=== PATIENT | female | born 1945 | race Caucasian/White ===

== ENCOUNTER → 2016-05-07 | Outpatient (CLI) | payer OTHER ==
--- NOTE | 2016-05-07 10:04 | MA ---
Screening Digital Mammogram With iCAD Analysis Clinical Indications: Routine screening. The patient has had benign left breast biopsies. Technique: Standard cephalocaudal and mediolateral oblique projections are obtained. This examination is processed by the iCAD computer aided detection system. Comparison: March 2015, March 2014, February 2014, February 2013, February 2012, January 2011, November 2009. Breast density: Type B; Scattered fibroglandular densities. Findings: CAD was reviewed. No masses, suspicious calcifications or other signs of malignancy are see n. There has been no significant change in the appearance of either breast. Impression: Negative mammogram. BI-RADS 1. Recommendation: Routine mammographic screening in one year as long as physical [facility]. Negative mammography should not preclude additional workup of a clinically suspicious finding. The patient's information is entered into a reminder system with a target due date for her next mammo gram.
== END ==
LOC: BMCIMAGING 08:16
DX: Z12.31 Encounter for screening mammogram for malignant neoplasm of breast (principal)
CPT/HCPCS: G0202

== ENCOUNTER → 2016-05-08 | Outpatient (CLI) | payer OTHER ==
--- NOTE | 2016-05-08 20:15 | DX ---
DEXA Bone Mineral Densitometry Clinical Indications: 70-year-old female with osteoporosis. Technique: Bone Mineral Densitometry (BMD) by Dual Energy X-Ray Absorptiometry (DEXA) was performed utilizing the SpectraSensors scanner. The lumbar spine was evaluated in the AP projection. The bilat eral hips and forearm were evaluated in the AP projection. Vertebral fracture assessment was also p erformed. Comparison: February 25, 2013. AP Lumbar Spine: The L1, L2, L3, and L4 vertebral bodies were evaluated. BMD: 0.757 gm/cm2. T-score: -3.5 SD. Z-score: -1.8 SD. -2.4% compared to the prior examination. AP Left Hip: Total BMD: 0.76 gm/cm2. T-score: -1.9 SD. Z-score: -0.5 SD. -2.3% compared to the prior examination. AP Right Hip: Total BMD: 0.835 gm/cm2. T-score: -1.4 SD. Z-score: -0.1 SD. 0.1% increase from the prior exam. AP Left Forearm, 05/01: BMD: 0.752 gm/cm2. T-score: -1.4 SD. Z-score: 0.2 SD. -4.2% compared to the prior examination. Vertebral Fracture Assessment: No significant fracture deformity. No prevertebral aortic calcificat ion, significant marginal bone spurring, facet arthrosis, or intrinsic vertebral body sclerosis that would effect the accuracy of the lumbar spine BMD measurement. Conclusion: Considering the lowest measured site, the lumbar spine, the patient is osteoporotic. Sm all decrease compared to the prior examination of 2.4% at this site and 4.2% in the forearm. The ten year FRAX risk for any major osteoporotic fracture, which excludes the risk for a wrist fract ure, is 17.8% and for a hip fracture is 3.1%. Any bone loss in this patient is probably related to aging or estrogen deficiency. Recommendations 1. Consider excluding secondary metabolic causes of bone loss (reported to be present in as many as 30% of patients with normal Z-scores). Laboratory evaluation might include hydroxy vitamin D3 level, TSH, PTH, calcium, 24-hour urine calcium, phosphorous, albumin, creatinine, alkaline phosphatase, se rum electrophoresis (SPEP or UPEP), antitissue transglutaminase antibody levels (celiac disease) and CBC. If secondary causes are excluded, then consider initiating treatment with a bisphosphonate (suc h as Fosamax, Actonel or Boniva). If the patient is unable to use an oral bisphosphonate, another ag ent such as IV bisphosphonates (Boniva or Reclast), teriparatide (Forteo), or a selective estrogen re ceptor modulator (Evista) might be considered. 2. Supplementing an insufficient diet to achieve total intakes of 1500 mg calcium and 800 Internatio nal Units of vitamin D daily should be considered. 3. Osteoporosis prevention and treatment begin by modifying risk factors. The patient should be enc ouraged to participate in a regular exercise program that includes weightbearing and muscle-strengthe preet regimens, as is clinically appropriate. 4. Recommend follow-up DEXA in one year to assess the efficacy of pharmacologic intervention and/or correction of appropriate secondary cause
== END ==
LOC: FIMAGING 08:33
PROVIDERS: ATTEND Family Medicine
DX: M81.0 Age-related osteoporosis without current pathological fracture (principal)

== ENCOUNTER → 2017-05-14 | Outpatient (CLI) | payer OTHER | LOC: BMCIMAGING 08:22 | PROVIDERS: ATTEND Family Medicine | DX: Z12.31 Encounter for screening mammogram for malignant neoplasm of breast (principal) ==

== ENCOUNTER 2017-10-28 13:55 | Emergency (ER) | payer OTHER ==
[2017-10-28] MEDS ORDERED: NS 1,000 ML IV ONE (14:18)
--- NOTE | 2017-10-28 14:22 | EDPHY ---
H & P Stated Complaint: word finding difficulty, dizzy Time Seen by Provider: 10/28/17 14:12 HPI/ROS: CHIEF COMPLAINT: Word-finding difficulties HISTORY OF PRESENT ILLNESS: Patient is a healthy 71-year-old female with a history of pre diabetes who states that around 930 this morning she began having trouble with word finding difficulties. She states that she was writing an e-mail and could not make a sentence makes sense. She then called her and had a hard time communicating. states that he noticed very slight slurred speech and then she stopped talking for about 10 sec and then her speech was back to normal. She states that her symptoms have been intermittent but resolved about 1 hr ago. She last had problems at around 1:30 a.m. Today. No fevers. No trauma. No recent illness. No focal weakness or numbness. No vision or hearing changes. No GI symptoms. No chest pain. She did have some dizziness associated but states that she has problems with chronic vertigo. No headache. REVIEW OF SYSTEMS: Constitutional: denies: chills, fever, recent illness, recent injury EENTM: denies: blurred vision, double vision, nose congestion Respiratory: denies: cough, shortness of breath Cardiac: denies: chest pain, irregular heart rate, lightheadedness, palpitations Gastrointestinal/Abdominal: denies: abdominal pain, diarrhea, nausea, vomiting, blood streaked stools Genitourinary: denies: dysuria, frequency, hematuria, pain Musculoskeletal: denies: joint pain, muscle pain Skin: denies: lesions, rash, jaundice, bruising Neurological: See HPI Hematologic/Lymphatic: denies: blood clots, easy bleeding, easy bruising Immunologic/allergic: denies: HIV/AIDS, transplant - Physical Exam General Appearance: WD/WN, mild distress Eyes, Ears, Nose, Throat Exam: PERRL/EOMI, normal ENT inspection, pharynx normal Neck: non-tender, full range of motion, supple, normal inspection. No: stiff neck, tender lateral Cardiovascular/Chest: normal peripheral pulses, regular rate, rhythm Respiratory: chest non-tender, lungs clear, normal breath sounds. No: crackles , rhonchi Gastrointestinal/Abdominal: normal bowel sounds, non tender, soft Back Exam: normal inspection Extremity: normal range of motion, non-tender, normal inspection Mental Status: alert, oriented x 3 NIH stroke score 0 CN's Exam: normal hearing, normal speech, PERRL, normal eye position, normal gag reflex, normal pupil position, normal speech. No: facial asymmetry, facial droop, facial paresthesias, gaze palsy, tongue deviation to R, tongue deviation to L Coordination/Gait: normal finger to nose, normal gait Motor/Sensory: normal. No: motor deficit, sensory deficit, pronator drift (R), pronator drift (L), weak motor strength RUE, weak motor strength LUE, weak motor strength RLE, weak motor strength LLE DTR: tricep (R): 2+, tricep (L): 2+, knee (R): 2+, knee (L): 2+ Skin Exam: warm/dry, normal color Lymphatic: no adenopathy Source: Patient, Family Exam Limitations: No limitations - Personal History Current Tetanus Diphtheria and Acellular Pertussis (TDAP): Unsure - Medical/Surgical History Hx Asthma: No Hx Chronic Respiratory Disease: No Hx Diabetes: Yes Hx Cardiac Disease: No Hx Renal Disease: No Hx Cirrhosis: No Hx Alcoholism: No Hx HIV/AIDS: No Hx Splenectomy or Spleen Trauma: No Other PMH: prediabetic, chronic back pain, high cholesterol, migraines - Family History Significant Family History: No pertinent family hx - Social History Smoking Status: Never smoked Alcohol Use: Sober Drug Use: None Constitutional: Initial Vital Signs Temperature (C) 36.9 C 10/28/17 14:05 Heart Rate 72 10/28/17 14:05 Respiratory Rate 16 10/28/17 14:05 Blood Pressure 139/76 H 10/28/17 14:05 O2 Sat (%) 96 10/28/17 14:05 O2 Delivery Mode Room Air Allergies/Adverse Reactions: Sulfa (Sulfonamide Antibiotics) Allergy (Verified 10/28/17 14:09) Home Medications: Medication Instructions Recorded SUMAtriptan 10/28/17 Medical Decision Making - Diagnostics EKG Interpretation: An EKG obtained and was read and documented in trace view. Please see trace view for full reading and report. Sinus rhythm, no acute ischemic changes Imaging Results: Imaging Impressions Brain MRI 10/28/17 14:19 Impression: 1. Mild age-related cerebral atrophy. 2. Single tiny nonspecific hyperintense T2/FLAIR signal abnormalities in the white matter of left posterior frontal lobe subcortical location superiorly. Differential diagnosis includes microvascular ischemic disease, post-infectious/ post-inflammatory sequela, atypical demyelinating disease, or migraine-related sequela. . If symptoms worsen, additional imaging may be necessary. Findings discussed with Luke Harmon M.D. at 15:33 hour, 10/28/2017. Head CT 10/28/17 14:19 Impression: 1. Mild age-related atrophy. 2. No hemorrhage, mass effect, or definite acute peripheral infarct. Subsequent CT angiogram procedure was also performed. Head CTA 10/28/17 14:32 Impression: 1. Normal CT angiogram of the neck. 2. Normal CT angiogram of the [place], as detailed above. Note: All calculations were performed using NASCET criteria. Findings discussed with Luke Harmon M.D. at 15:46 hour, 10/28/2017. Neck CTA 10/28/17 14:32 Impression: 1. Normal CT angiogram of the neck. 2. Normal CT angiogram of the [place], as detailed above. Note: All calculations were performed using NASCET criteria. Findings discussed with Luke Harmon M.D. at 15:46 hour, 10/28/2017. Imaging: Discussed imaging studies w/ emergency preparedness manager Radiologist ED Course/Re-evaluation: I spoke with Dr. Miguel of from Neurology. He agrees that this is not a stroke alert. We discussed workup. He does recommend CT angio. Will also obtain MRI and echo. If these are normal the patient may go home. I spoke with Dr. Igor Falcon at the time of ordering neck when he agree to read it. Patient's tests are all unremarkable. This is reassuring. I will start her on aspirin daily and have her follow up with Dr. Miguel. We also discussed following up with Cardiology for cardiac monitoring possibly calcium scores etc. Differential Diagnosis: Partial list of the Differential diagnosis considered include but were not limited to; TIA, CVA, anxiety, migraine and although unlikely based on the history and physical exam, I also considered infection, allergic reaction, seizure, trauma. I discussed these differential diagnoses and the plan with the patient as well as the usual and expected course. The patient understands that the diagnosis is provisional and that in medicine we are not always correct and that further workup is often warranted. Usual and customary warnings were given. All of the patient's questions were answered. The patient was instructed to return to the emergency department should the symptoms at all worsen or return, otherwise to followup with the physician as we discussed. - Data Points Laboratory Results: Laboratory Results 10/28/17 14:30 10/28/17 14:30 10/28/17 10/28/17 10/28/17 14:30 14:30 14:30 WBC 7.11 10^3/uL 10^3/uL (3.80-9.50) RBC 5.10 10^6/uL 10^6/uL (4.18-5.33) Hgb 14.1 g/dL g/dL (12.6-16.3) Hct 43.9 % % (38.0-47.0) MCV 86.1 fL fL (81.5-99.8) MCH 27.6 pg L pg (27.9-34.1) MCHC 32.1 g/dL L g/dL (32.4-36.7) RDW 14.0 % % (11.5-15.2) Plt Count 228 10^3/uL 10^3/uL (150-400) MPV 10.0 fL fL (8.7-11.7) Neut % (Auto) 61.4 % % (39.3-74.2) Lymph % (Auto) 27.8 % % (15.0-45.0) [place] % (Auto) 8.0 % % (4.5-13.0) Eos % (Auto) 1.5 % % (0.6-7.6) Baso % (Auto) 1.0 % % (0.3-1.7) Nucleat RBC Rel Count 0.0 % % (0.0-0.2) Absolute Neuts (auto) 4.36 10^3/uL 10^3/uL (1.70-6.50) Absolute Lymphs (auto) 1.98 10^3/uL 10^3/uL (1.00-3.00) Absolute Monos (auto) 0.57 10^3/uL 10^3/uL (0.30-0.80) Absolute Eos (auto) 0.11 10^3/uL 10^3/uL (0.03-0.40) Absolute Basos (auto) 0.07 10^3/uL 10^3/uL (0.02-0.10) Absolute Nucleated RBC 0.00 10^3/uL 10^3/uL (0-0.01) Immature Gran % 0.3 % % (0.0-1.1) Immature Gran # 0.02 10^3/uL 10^3/uL (0.00-0.10) PT 13.7 SEC SEC (12.0-15.0) INR 1.03 (0.83-1.16) APTT 25.7 SEC SEC (23.0-38.0) Sodium 137 mEq/L mEq/L (135-145) Potassium 5.2 mEq/L H mEq/L (3.3-5.0) Chloride 110 mEq/L mEq/L (97-110) Carbon Dioxide 20 mEq/l L mEq/l (22-31) Anion Gap 7 mEq/L L mEq/L (8-16) BUN 31 mg/dL H mg/dL (7-23) Creatinine 0.6 mg/dL mg/dL (0.6-1.0) Estimated GFR > 60 Glucose 85 mg/dL mg/dL (70-100) Calcium 10.3 mg/dL mg/dL (8.5-10.4) Specimen Hemolysis 115 Medications Given: Discontinued Medications Sodium Chloride (Ns) 1,000 mls @ 500 mls/hr IV EDNOW ONE PRN Reason: Protocol Stop: 10/28/17 16:17 Last Admin: 10/28/17 14:34 Dose: 1,000 mls Departure - Departure Disposition: [facility] Inpatient Acute Clinical Impression: Transient cerebral ischemia Qualifiers: Transient cerebral ischemia type: unspecified Qualified Code(s): G45.9 - Transient cerebral ischemic attack, unspecified Condition: Fair Instructions: Transient Ischemic Attack (ED) Additional Instructions: Began taking aspirin daily as discussed and follow-up with Neurology. Referrals: Nadya Garrison MD [Primary Care Provider] - As per Instructions Trent Connor MD [Medical Doctor] - 5-7 days, call for appt.
--- NOTE | 2017-10-28 14:28 | CPEKG ---
Heart Rate: 64 RR Interval: 938 P-R Interval: 140 QRSD Interval: 90 QT Interval: 420 QTC Interval: 434 P [place]: 65 QRS [place]: 39 T Wave [place]: 49 EKG Severity - NORMAL ECG - EKG Impression: SINUS RHYTHM Electronically Signed By: Luke Harmon 28-Oct-2017 14:55:46
[2017-10-28 14:36] LABS: PLATELET COUNT 228 10^3/uL (150-400)
[2017-10-28 14:44] LABS: INR 1.03 (0.83-1.16); PROTIME(PATIENT) 13.7 SEC (12.0-15.0)
[2017-10-28] MEDS ORDERED: IOPAMIDOL (ISOVUE 370) 100 ML BTL IV ONE (14:54)
[2017-10-28 16:08] VITALS: BP 135/72
--- NOTE | 2017-10-28 16:29 | ECHO ---
[email or web address] [address] Main: [phone] Fax: Transthoracic Echocardiogram Name: CARLOS MOCK MR#: [id number] Study Date: 10/28/2017 Study Time: 03:51 PM Date of : 1945 Age: 71 year(s) Height: 162.6 cm (64 in.) Weight: 58.97 kg (130 lb.) BSA: 1.63 m2 Gender: Female Examination: Echo Indication: Chest Pain Image Quality: Contrast: Requested by: Luke Harmon BP: 140 mmHg/72 mmHg Heart Rate: Rhythm: Indication: Chest Pain Procedure Staff Oil Plant Operator: Anne Marie Cabrales RDCS Reading Physician: Adeel Falcon MD Requesting Provider: Conclusions: Normal size left ventricle. Normal global systolic LV function. The ejection fraction is estimated to be 65-70 %. No regional wall motion abnormality. Mild mitral valve regurgitation is present. Mild to moderate aortic valve regurgitation. Trivial tricuspid valve regurgitation. Measurements: Chambers Valvular Assessment AV/MV Valvular Assessment TV/PV Normal Normal Normal Name Value Range Name Value Range Name Value Range Ao Stefani (MM): 3.6 cm (2.2 cm-3.7 AV Vmax: 1.05 m/s (1 m/s-1.7 cm) m/s) IVSd (2D): 0.7 cm (0.6 cm-1.1 AV maxP mmHg ( - ) cm) AV meanP mmHg ( - ) LVDd (2D): 5.0 cm (3.9 cm-5.3 AR (PHT): 511 ms ( - ) cm) MV E Vmax: 0.43 m/s ( - ) LVDs (2D): 3.3 cm (2.1 cm-4 MV A Vmax: 0.64 m/s ( - ) cm) MV E/A: 0.67 ( - ) LVPWd (2D): 0.6 cm ( - ) LVOTd 2.2 cm 2.2 cm mm LVEF (MOD4): 68 % (>=55 %) EF Range: 65-70 % Continued Measurements: Chambers Valvular Assessment AV/MV Name Value Name Value LADs: 3.5 cm MV E/E' Septal: 9.40 Patient: CARLOS MOCK Study Date: 10/28/2017 Page 1 of 2 03:51 PM LADs Lon.7 cm MV E/E' Lateral: 6.20 LA Area: 17.0 cm2 AR Vmax: 4.71 cm/s Additional Vessels Name Value Ao Ascendin.3 cm Findings: Left Ventricle: Normal size left ventricle. No LV hypertrophy. Normal global systolic LV function. The ejection fraction is estimated to be 65-70 %. No regional wall motion abnormality. Right Ventricle: Normal size right ventricle. Left Atrium: The left atrium is normal in size. Right Atrium: The right atrium is normal in size. Mitral Valve: The mitral valve is normal in appearance and function. Mild mitral valve regurgitation is present. Aortic Valve: The aortic valve is normal in appearance and function. The aortic valve is tri-leaflet. Mild to moderate aortic valve regurgitation. Tricuspid Valve: The tricuspid valve is normal in appearance and function. Trivial tricuspid valve regurgitation. Pulmonic Valve: The pulmonic valve is normal in appearance and function. Trivial pulmonic valve regurgitation. Aorta: The aorta is normal. Pericardium: No pericardial effusion. There is pericardial fat. (No Signature Object) Patient: CARLOS MOCK Study Date: 10/28/2017 Page 2 of 2 03:51 PM [id number]
--- NOTE | 2017-10-29 14:55 | PDCONSULT ---
Bowl Topper Note: Phone call consultation note: I was called by the emergency physician regarding a patient with TIA symptoms ( see ED consultation note) who declined offered for admission. The question was what kind of TIA workup could be done in the emergency department. I recommended stat CTA of the head and neck, EKG monitoring, head CT without contrast to exclude hemorrhage, and echocardiogram. I asked the emergency department call me if there were any questions or abnormalities on the findings above. Certainly, if there was no significant abnormalities in the patient persisted in her desire to discharge home, then being discharged on anti- platelet therapy and close follow-up with her PCP, neurology and cardiology would be indicated. Otherwise, she could be admitted for overnight ECG monitoring if she changed her mind. Assessment: Subjective: Objective: Vital Signs Temp Pulse Resp BP Pulse Ox 36.7 C 70 16 135/72 H 97 10/28/17 17:13 10/28/17 17:13 10/28/17 17:13 10/28/17 17:13 10/28/17 17:13 Laboratory Results 10/28/17 14:30 10/28/17 14:30 10/28/17 10/29/17 10/30/17 05:59 05:59 05:59 Intake Total 1000 Balance 1000 PT 13.7 SEC (12.0-15.0) 10/28/17 14:30 INR 1.03 (0.83-1.16) 10/28/17 14:30 Allergies/Adverse Reactions: Sulfa (Sulfonamide Antibiotics) Allergy (Verified 10/28/17 14:09)
== END 2017-10-28 17:11 | disposition home or self-care (01) ==
DX: G45.9 Transient cerebral ischemic attack, unspecified (principal); E86.9 Volume depletion, unspecified
CPT/HCPCS: Q9967

== ENCOUNTER → 2018-06-25 | Outpatient (CLI) | payer OTHER, MEDICARE | LOC: BMCIMAGING 13:57 | PROVIDERS: ATTEND Family Medicine | DX: M81.0 Age-related osteoporosis without current pathological fracture (principal); Z78.0 Asymptomatic menopausal state; Z12.31 Encounter for screening mammogram for malignant neoplasm of breast ==